=== PATIENT | male | born 1960 | race Two or more races ===

== ENCOUNTER 2022-02-17 06:25 | Inpatient (IN) | payer MEDICARE, OTHER ==
[~2022-02-17] VITALS: Ht 170.2 cm; Wt 56.7 kg
[2022-02-17] MEDS ORDERED: IV NS 0.9% 1,000 ML BAG IV ONE ×2 (06:30→07:30)
[2022-02-17] MEDS ORDERED: ONDANSETRON HCL/PF 4 MG/2 ML VIAL IVP ONE (06:30)
[2022-02-17] MEDS ORDERED: ONDANSETRON HCL/PF 4 MG/2 ML VIAL ONE (06:44)
[2022-02-17] MEDS ORDERED: FAMOTIDINE (20 MG) 20 MG TABLET ONE (06:44)
--- NOTE | 2022-02-17 06:51 | NUR ---
BIBRA 41 FROM [facility] FOR C/O EPIGASTRIC/ABD PAIN, N/V, AND DIARRHEA SINCE MONDAY, NON-BLOODY. PT AWAKE AND ALERT ANSWER QUESTIONS APPROPRIATELY.PT PLACED ON MONITOR AND NOTED TACHYCARDIC RECTAL TEMP 96.7. MD WAS AT BEDSIDE FOR EVAL.
--- NOTE | 2022-02-17 06:53 | NUR ---
20G IV ESTABLISHED AT [facility]. BLOOD DRAWN AND SENT TO LAB
--- NOTE | 2022-02-17 06:57 | NUR ---
PT UNABLE TO PROVIDE URINE AT THIS TIME. URINAL AT BEDSIDE
[2022-02-17 07:00] LABS: BASOPHILS % (AUTO) 0.2 % (0.0-2.0); EOSINOPHILS % (AUTO) 0.1 % (0.0-6.0); HEMATOCRIT 46 % (39-51); HEMOGLOBIN 15.2 g/dL (13.5-17.5); LYMPHOCYTES # (AUTO) 1.2 K/uL (0.8-4.8); LYMPHOCYTES % (AUTO) 8.4 % (20.0-44.0); MEAN CORPUSCULAR HGB CONC 33 g/dl (31.0-36.0); MEAN CORPUSCULAR VOLUME 91 fL (80-96); MONOCYTES # (AUTO) 0.8 K/uL (0.1-1.30); MONOCYTES % (AUTO) 6.1 % (2.0-12.0); NEUTROPHILS # (AUTO) 11.9 K/uL (1.8-8.9); NEUTROPHILS % (AUTO) 85.2 % (43.0-81.0); PLATELET COUNT (AUTO) 535 K/uL (150-450); RED BLOOD CELL COUNT(AUTO) 5.11 MIL/uL (4.5-6.0)
[2022-02-17] MEDS ORDERED: FAMOTIDINE (20 MG) 20 MG TABLET PO ONE (07:00)
--- NOTE | 2022-02-17 07:06 | NUR ---
BROUGHT PATIENT TO CT DEPARTMENT
[2022-02-17 07:14] LABS: CALCIUM, SERUM 8.9 mg/dL (8.5-10.1); CARBON DIOXIDE 25 mmol/L (21-32); CHLORIDE 92 mmol/L (98-107); CREATININE 1.8 mg/dL (0.6-1.3); GLUCOSE 233 mg/dL (74-106); SODIUM SERUM 134 mmol/L (136-145); UREA NITROGEN, BLOOD 30 mg/dL (7-18)
[2022-02-17] MEDS ORDERED: POTASSIUM CL. PREMIX PERIPHER. 50 ML IV SCH (07:30)
[2022-02-17 07:31] LABS: ALANINE AMINOTRANSFERASE 22 U/L (12-78); ALKALINE PHOSPHATASE 67 U/L (46-116); ASPARTATE AMINOTRANSFERASE 11 U/L (15-37); BILIRUBIN,DIRECT 0.2 mg/dL (0.0-0.2); BILIRUBIN,TOTAL 0.8 mg/dL (0.2-1.0); TOTAL PROTEIN, SERUM 6.2 g/dL (6.4-8.2)
[2022-02-17 07:59] LABS: MAGNESIUM 2.3 mg/dL (1.8-2.4)
[2022-02-17 08:00] LABS: ALCOHOL, BLOOD < 3 mg/dL (0-0)
[2022-02-17] MEDS ORDERED: PIPERACILLIN /TAZOBACTAM 3.375 G in IV D5W 50 ML IV ONE (08:00)
[2022-02-17] MEDS ORDERED: PIPERACILLIN /TAZOBACTAM 3.375 G VIAL IV ONE (08:16)
[2022-02-17 08:20] LABS: BILIRUBIN,URINE NEGATIVE (NEGATIVE); COLOR,URINE YELLOW (YELLOW); LEUKOCYTE ESTERASE ,URINE NEGATIVE (NEGATIVE); NITRITE, URINE NEGATIVE (NEGATIVE); PH,URINE 5.5 (5.0-8.0); PROTEIN,URINE TRACE mg/dl (NEGATIVE); UGLUCOSE NEGATIVE (NEGATIVE)
--- NOTE | 2022-02-17 08:47 | NUR ---
RT AT BEDSIDE FOR ABG
[2022-02-17 08:50] LABS: BACTERIA,URINE None seen /HPF (None Seen); HYALINE CASTS, URINE Moderate /LPF (None Seen); RBC,URINE 0-2 /HPF (0-2); SQUAMOUS EPITHELIAL CELL,UR Few /HPF (None Seen); WBC,URINE 0-2 /HPF (0-3)
[2022-02-17] MEDS ORDERED: POTASSIUM CL. PREMIX PERIPHER. 100 ML ONE (09:15)
[2022-02-17] MEDS ORDERED: MAG HYDROX/AL HYDROX/SIMETH 30 ML UDC PO PRN (09:30)
[2022-02-17] MEDS ORDERED: MORPHINE SULFATE INJ 2 MG/ML DISP.SYRIN IV PRN (09:30)
[2022-02-17] MEDS ORDERED: MAGNESIUM HYDROXIDE 30 ML UDC PO PRN (09:30)
[2022-02-17] MEDS ORDERED: IV D5/0.45 NACL 1,000 ML IV PRN (09:30)
[2022-02-17] MEDS ORDERED: Z GUARD REMEDY 4 OZ OINT TP PRN (09:30)
[2022-02-17] MEDS ORDERED: HYDROCODONE/APAP 5/325MG TABLET PO PRN (09:30)
[2022-02-17] MEDS ORDERED: ACETAMINOPHEN 325 MG TABLET PO PRN (09:30)
[2022-02-17] MEDS ORDERED: ZOLPIDEM TARTRATE 5 MG TABLET PO PRN (09:30)
[2022-02-17] MEDS ORDERED: ONDANSETRON HCL/PF 4 MG/2 ML VIAL IVP PRN (09:30)
--- NOTE | 2022-02-17 10:28 | NUR ---
GOT BED 308.
--- NOTE | 2022-02-17 11:35 | NUR ---
REPORT GIVEN TO KAROLYN GARCIA FOR TERI
[2022-02-17 11:42] LABS: LIPASE 174 U/L (73-393)
--- NOTE | 2022-02-17 12:07 | NUR ---
TRANSFERRED TO BED 308 IN STABLE CONDITION
[2022-02-17 12:10] VITALS: BP 124/66
--- NOTE | 2022-02-17 12:10 | NUR ---
RN Receiving Report. Patient arrived to unit safely, all safety precautions taken. Patient AOx4 able to communicate concerns, patient able to provide his medical history. Patients vital signs stable, no signs of distress, patient on Room Air with no signs or symptoms of respiratory distress. Call light and table within reach, bed at lowest position. Oriented patient to the funit and discussed plan of care, patient agrees. Will continue to monitor and provide care as needed.
[2022-02-17 16:00] VITALS: BP 152/93
[2022-02-17] MEDS: PIPERACILLIN /TAZOBACTAM 3.375 G in IV D5W 100 ML IV SCH ×2 (16:02→23:25)
--- NOTE | 2022-02-17 18:30 | NUR ---
RN Opening Note Patient AOx4, able to express his own concerns. State he is able to go back to the senior living when he is ready for discharge. Administered medications as prescribed, provided care as needed. All safety precautions taken, call light and table within reach. Will endorse to night nurse for continuity of care.
[2022-02-17 18:54] LABS: ABG BASE EXCESS -1.1 mmol/L; ABG PCO2 39.2 mmHg (35.0-45.0); ABG PH 7.397 (7.350-7.450); ABG PO2 79.6 mmHg (75.0-100.0); COHb 0.3 % (0.5-1.5); MetHb 0.3 % (0.0-1.5); SITE, ABG Right Radial; VENT MODE, BG RA 21%
[2022-02-17] MEDS ORDERED: INFLUENZA VACCINE 2022-23 0.5 ML DISP.SYRIN IM ONE (19:00)
--- NOTE | 2022-02-17 19:20 | NUR ---
PULP GRINDER FEEDER OPENING NOTE RECEIVED PATIENT IN BED; AWAKE, ALERT AND ORIENTED X 3. BREATHING EVEN AND NONLABORED. ON ROOM AIR; TOLERATING WELL. NOT IN ANY FORM OF RESPIRATORY DISTRESS. DENIES ANY PAIN OR DISCOMFORT AT THIS TIME. ON TELEMETRY MONITORING: SINUS RHYTHM HR-83 BPM. WITH IV ACCESS ON LEFT ANTECUBITAL 20g: PATENT AND INTACT INFUSING WITH D5 1/2 NS 1L RUNNING @ 125 ML/HR; FLUSHES WELL. ABLE TO MAKE NEEDS KNOWN. SAFETY MEASURES IMPLEMENTED: CALL LIGHT AND TABLE WITHIN REACH, SIDE RAILS UP X 2, BED IN LOWEST LOCKED POSITION. WILL CONTINUE PLAN OF CARE.
[2022-02-17 20:00] VITALS: BP 160/73
[2022-02-18] VITALS (7 sets, daily range): BP systolic 122–166; BP diastolic 74–88
[2022-02-18 06:47] LABS: BASOPHILS % (AUTO) 0.3 % (0.0-2.0); EOSINOPHILS % (AUTO) 0.2 % (0.0-6.0); HEMATOCRIT 35 % (39-51); LYMPHOCYTES # (AUTO) 1.6 K/uL (0.8-4.8); MEAN CORPUSCULAR HGB CONC 34 g/dl (31.0-36.0); MEAN CORPUSCULAR VOLUME 90 fL (80-96); MONOCYTES # (AUTO) 0.6 K/uL (0.1-1.30); MONOCYTES % (AUTO) 6.9 % (2.0-12.0); NEUTROPHILS # (AUTO) 6.9 K/uL (1.8-8.9); NEUTROPHILS % (AUTO) 75.6 % (43.0-81.0); PLATELET COUNT (AUTO) 410 K/uL (150-450); RED BLOOD CELL COUNT(AUTO) 3.92 MIL/uL (4.5-6.0); WHITE BLOOD COUNT (AUTO) 9.1 K/uL (4.3-11.0)
--- NOTE | 2022-02-18 06:55 | NUR ---
CLEANING ASSOCIATE CLOSING NOTE PATIENT IN BED; AWAKE, A/O X 3. STABLE ON ROOM AIR. BREATHING EQUAL AND UNLABORED. IN NO APPARENT DISTRESS. NO C/O ANY PAIN OR DISCOMFORT NOTED AT THIS TIME. ON TELE MONITORING: SINUS RHYTHM HR-74 BPM WITH PVCS AND TRIGEMINY. IV ACCESS ON LEFT AC 20g: PATENT AND INTACT INFUSING WITH D5 1/2 NS RUNNING @ 125 ML/HR; FLUSHES WELL. ALL NEEDS ATTENDED. ALL DUE MEDS GIVEN ORDERED. SAFETY MEASURES MAINTAINED: CALL BUTTON AND TABLE WITHIN EASY REACH, SIDE RAILS UP X 2, BED IN LOWEST LOCKED POSITION. ENDORSED TO MORNING SHIFT FOR TERI.
[2022-02-18 07:20] LABS: CALCIUM, SERUM 8.3 mg/dL (8.5-10.1); CREATININE 0.9 mg/dL (0.6-1.3); MAGNESIUM 2.3 mg/dL (1.8-2.4); POTASSIUM 3.7 mmol/L (3.5-5.1)
--- NOTE | 2022-02-18 07:25 | NUR ---
RN OPENING NOTE RECEIVED PATIENT IN BED, AWAKE, A/O X4, VERBALLY RESPONSIVE. NO SIGNS OF ACUTE DISTRESS NOTED. STABLE ON ROOM AIR. NO SOB NOTED. BREATHING EVEN AND UNLABORED. ON RAILROAD MECHANIC, SHOWING SINUS RHYTHM WITH PVC, HR @ 70. DENIES ANY PAIN AT THIS TIME. NOTED WITH IV ACCESS ON LEFT AC #20G, INTACT AND PATENT WITH D5 1/2NS @125 ML/HR. SAFETY MEASURE IN PLACE. BED IN LOWEST AND LOCKED POSITION. SIDE RAILS UP X2, CALL LIGHT PLACED WITHIN EASY REACH. WILL CONTINUE TO MONITOR PATIENT.
[2022-02-18] MEDS: PANTOPRAZOLE 40 MG VIAL IV SCH (08:17)
[2022-02-18] MEDS: PIPERACILLIN /TAZOBACTAM 3.375 G in IV D5W 100 ML IV SCH ×3 (08:17→23:19)
[2022-02-18] MEDS: ATORVASTATIN 10 MG TABLET PO SCH (12:58)
[2022-02-18] MEDS: CARVEDILOL 3.125 MG TABLET PO SCH ×2 (12:58→21:05)
[2022-02-18] MEDS: ASPIRIN 81 MG TAB.CHEW PO SCH (12:58)
[2022-02-18 13:13] LABS: CHOLESTEROL 148 mg/dL (<200); HDL CHOLESTEROL 58 mg/dL (40-60); LDL 70 mg/dL (0-99); TRIGLYCERIDES 114 mg/dL (30-150)
--- NOTE | 2022-02-18 18:35 | NUR ---
RN CLOSING NOTES PATIENT RESTING IN BED, EASILY AROUSED. NO SIGNS OF ACUTE DISTRESS NOTED. REMIANS STABLE ON ROOM AIR. NO SOB NOTED. BREATHING EVEN AND UNLABORED. ON AIRBORNE AND AIR DELIVERY SPECIALIST, CURRENTLY SHOWING SINUS RHYTHM WITH PVC, HR @ 870 NO C/O PAIN AT THIS TIME. NOTED WITH IV ACCESS ON LEFT AC #20G, INTACT AND PATENT WITH D5 1/2NS @125 ML/HR. SAFETY MEASURE IN PLACE. BED IN LOWEST AND LOCKED POSITION. SIDE RAILS UP X2, CALL LIGHT PLACED WITHIN EASY REACH. WILL ENDORSE TO NEXT SHIFT FOR TERI.
--- NOTE | 2022-02-18 19:20 | NUR ---
RN OPENING NOTE RECEIVED PATIENT IN BED; AWAKE, ALERT AND ORIENTED X 4. BREATHING EVENLY AND NONLABORED. ON ROOM AIR; TOLERATING WELL. NOT IN ANY FORM OF RESPIRATORY DISTRESS. NO C/O ANY PAIN OR DISCOMFORT AT THIS TIME. ON TELEMETRY MONITORING: SINUS RHYTHM WITH PVC HR-88 BPM. WITH IV ACCESS ON LEFT ANTECUBITAL 20g: PATENT AND INTACT INFUSING WITH D5 1/2 NS 1L RUNNING @ 125 ML/HR; FLUSHES WELL. ABLE TO MAKE NEEDS KNOWN. SAFETY MEASURES IMPLEMENTED: CALL LIGHT AND TABLE WITHIN REACH, SIDE RAILS UP X 2, BED IN LOWEST LOCKED POSITION. WILL CONTINUE PLAN OF CARE
[2022-02-19] VITALS: BP 111/56
[2022-02-19 04:00] VITALS: BP 137/79
[2022-02-19 06:17] LABS: BASOPHILS % (AUTO) 0.2 % (0.0-2.0); EOSINOPHILS % (AUTO) 1.2 % (0.0-6.0); HEMATOCRIT 29 % (39-51); HEMOGLOBIN 9.9 g/dL (13.5-17.5); LYMPHOCYTES # (AUTO) 1.5 K/uL (0.8-4.8); LYMPHOCYTES % (AUTO) 22.6 % (20.0-44.0); MEAN CORPUSCULAR HGB CONC 34 g/dl (31.0-36.0); MEAN CORPUSCULAR VOLUME 88 fL (80-96); MONOCYTES # (AUTO) 0.5 K/uL (0.1-1.30); MONOCYTES % (AUTO) 7.1 % (2.0-12.0); NEUTROPHILS # (AUTO) 4.6 K/uL (1.8-8.9); NEUTROPHILS % (AUTO) 68.9 % (43.0-81.0); PLATELET COUNT (AUTO) 379 K/uL (150-450); RED BLOOD CELL COUNT(AUTO) 3.27 MIL/uL (4.5-6.0); WHITE BLOOD COUNT (AUTO) 6.7 K/uL (4.3-11.0)
--- NOTE | 2022-02-19 06:40 | NUR ---
RN CLOSING NOTE PATIENT IN BED; AWAKE, A/O X 4. STABLE ON ROOM AIR. BREATHING EVENLY AND UNLABORED. IN NO ACUTE DISTRESS. DENIES ANY PAIN OR DISCOMFORT AT THIS TIME. ON TELE MONITORING: SINUS RHYTHM WITH PVC HR-88 BPM. WITH IV ACCESS ON LEFT AC 20g: INTACT AND PATENT INFUSING WITH D5 1/2 NS 1L RUNNING @ 125 ML/HR; FLUSHING WELL. ALL NEEDS ATTENDED. SAFETY MEASURES MAINTAINED: CALL LIGHT AND TABLE WITHIN REACH, SIDE RAILS UP X 2, BED IN LOWEST LOCKED POSITION. ENDORSED TO MORNING SHIFT FOR TERI.
[2022-02-19 06:45] LABS: ALBUMIN 2.4 g/dL (3.4-5.0); BILIRUBIN,TOTAL 0.5 mg/dL (0.2-1.0); CREATININE 0.8 mg/dL (0.6-1.3); PHOSPHORUS 2.8 mg/dL (2.5-4.9); POTASSIUM 3.7 mmol/L (3.5-5.1); TOTAL PROTEIN, SERUM 4.7 g/dL (6.4-8.2)
--- NOTE | 2022-02-19 07:20 | NUR ---
SAND MIXER OPERATOR OPENING NOTE PATIENT IN BED ALERT AND ORIENTED X 4. PATIENT ON ROOM AIR WITH EQUAL AND UNLABORED BREATHING. WITH NO RESPIRATORY DISTRESS NOTED. PATIENT DENIES ANY PAIN OR DISCOMFORT AT THIS TIME. ON TELE MONITORING READING SINUS RHYTHM WITH PVC AND OCCASIONAL TRIGEMINY WITH HR OF 81 BPM. WITH IV ACCESS ON LEFT AC 20G WITH D5 1/2 NS RUNNING AT 125ML/HR INFUSING WELL. COMFORT MEASURES PROVIDED. IN STABLE CONDITION. CALL LIGHT AND TABLE WITHIN REACH, SIDE RAILS UP X 2, BED IN LOWEST LOCKED POSITION.
[2022-02-19 08:00] VITALS: BP 140/70
[2022-02-19] MEDS: PIPERACILLIN /TAZOBACTAM 3.375 G in IV D5W 100 ML IV SCH ×2 (09:09→15:58)
[2022-02-19] MEDS: ASPIRIN 81 MG TAB.CHEW PO SCH (09:09)
[2022-02-19] MEDS: ATORVASTATIN 10 MG TABLET PO SCH (09:09)
[2022-02-19] MEDS: PANTOPRAZOLE 40 MG VIAL IV SCH (09:09)
[2022-02-19] MEDS: CARVEDILOL 3.125 MG TABLET PO SCH ×2 (09:10→20:21)
--- NOTE | 2022-02-19 09:18 | NUR ---
PLASTIC DIE MAKER APPRENTICE NOTE PATIENT GIVEN FULL LIQUID DIET, TOLERATED WELL.
--- NOTE | 2022-02-19 12:15 | NUR ---
SAFETY PERSON NOTE PATIENT REQUESTED TO ADVANCE DIET. WITH MD ORDER TO ADVANCE DIET TOLERATED. PATIENT CHANGED TO SOFT DIET. TOLERATED WELL. IN STABLE CONDITION.
--- NOTE | 2022-02-19 13:40 | NUR ---
[employer]AD[employer]CHOOL DEAN NOTE PATIENT BROUGHT DOWN FOR CTA WITH 3D IMAGING. IN STABLE CONDITION.
[2022-02-19] MEDS ORDERED: IOHEXOL-350 100 ML VIAL IV ONE (13:52)
[2022-02-19] MEDS ORDERED: NITROGLYCERIN 0.4 MG/TAB BOTTLE ONE (13:52)
[2022-02-19] MEDS ORDERED: METOPROLOL TARTRATE INJ 5 MG/5 ML AMPUL ONE (13:53)
[2022-02-19] MEDS ORDERED: IV NS 0.9% 250 ML IV ONE (13:53)
[2022-02-19] MEDS ORDERED: CT SWABBABLE VALVE TRANS SET 1 EA INFUS.SET MC ONE (13:53)
[2022-02-19] MEDS ORDERED: IV NS 0.9% 500 ML IV ONE (14:13)
--- NOTE | 2022-02-19 14:30 | NUR ---
ACTIONSCRIPT DEVELOPER NOTE BACK FROM PROCEDURE, IN STABLE CONDITION. PROVIDED WITH CALM AND QUIET ENVIRONMENT.
--- NOTE | 2022-02-19 14:53 | NUR ---
METAL ROLLING MILL OPERATOR NOTE SEEN BY HOSPITALIST AIMEE CAMARA.
[2022-02-19 16:00] VITALS: BP 130/51
--- NOTE | 2022-02-19 16:07 | NUR ---
CLOCKSMITH NOTE ENDORSED TO JOSE ORELLANA FOR CONTINUITY OF CARE.
--- NOTE | 2022-02-19 18:59 | NUR ---
FUR CLEANER CLOSING NOTE PT IN BED ALERT AND ORIENTED X 4. PATIENT ON ROOM AIR WITH NO SOB OR DISTRESS NOTED , PATIENT DENIES ANY PAIN OR DISCOMFORT AT THIS TIME. ON TELE MONITORING READING SINUS RHYTHM WITH PVC AND OCCASIONAL TRIGEMINY WITH HR OF 80 BPM. WITH IV ACCESS ON LEFT AC 20G WITH D5 1/2 NS RUNNING AT 125ML/HR INFUSING WELL. ALL DUE MEDS GIVEN ORDERED , WITH ORDER FOR DISCHARGE BUT AWAITING FOR THE RESULT OF CTCA , COMFORT MEASURES PROVIDED. IN STABLE CONDITION. CALL LIGHT AND TABLE WITHIN REACH, SIDE RAILS UP X 2, BED IN LOWEST LOCKED POSITION. ENDORSED TO NEXT SHIFT
--- NOTE | 2022-02-19 19:33 | NUR ---
MEMBER OF THE LEGISLATIVE ASSEMBLY OPENING NOTES; RECEIVED PT IN BED ALERT AND ORIENTED X 4. PATIENT ON ROOM AIR WITH NO SOB OR DISTRESS NOTED , PATIENT DENIES ANY PAIN OR DISCOMFORT AT THIS TIME.WITH IV ACCESS ON LEFT AC 20G WITH D5 1/2 NS RUNNING AT 125ML/HR INFUSING WELL,SAFETY MEASURE INPLACE,CALL LIGHT AND TABLE WITHIN REACH, SIDE RAILS UP X 2, BED IN LOWEST LOCKED POSITION.WILL CONTINUE TO MONITOR.
[2022-02-19 20:00] VITALS: BP 115/53
[2022-02-20] VITALS: BP 102/58
[2022-02-20] MEDS: PIPERACILLIN /TAZOBACTAM 3.375 G in IV D5W 100 ML IV SCH ×2 (00:10→07:47)
[2022-02-20 04:00] VITALS: BP 113/71
--- NOTE | 2022-02-20 06:20 | NUR ---
RESPIRATORY THERAPY AIDE CLOSING NOTES; PT IN BED ALERT AND ORIENTED X 4. PATIENT ON ROOM AIR WITH NO SOB OR DISTRESS NOTED , PATIENT DENIES ANY PAIN OR DISCOMFORT DURING SHIFT.DUE MEDS GIVEN ORDER,ALL NEEDS ATTENDED,WITH IV ACCESS ON LEFT AC 20G WITH D5 1/2 NS RUNNING AT 125ML/HR INFUSING WELL,SAFETY MEASURE INPLACE,CALL LIGHT AND TABLE WITHIN REACH, SIDE RAILS UP X 2, BED IN LOWEST LOCKED POSITION.WILL ENDORSED TO NEXT SHIFT.
[2022-02-20 07:01] LABS: CALCIUM, SERUM 8.1 mg/dL (8.5-10.1); CREATININE 0.9 mg/dL (0.6-1.3); MAGNESIUM 2.1 mg/dL (1.8-2.4); PHOSPHORUS 3.3 mg/dL (2.5-4.9); POTASSIUM 3.8 mmol/L (3.5-5.1)
[2022-02-20 07:17] LABS: BASOPHILS % (AUTO) 0.5 % (0.0-2.0); EOSINOPHILS % (AUTO) 2.5 % (0.0-6.0); HEMATOCRIT 29 % (39-51); HEMOGLOBIN 9.9 g/dL (13.5-17.5); LYMPHOCYTES # (AUTO) 1.8 K/uL (0.8-4.8); LYMPHOCYTES % (AUTO) 25.8 % (20.0-44.0); MEAN CORPUSCULAR HGB CONC 34 g/dl (31.0-36.0); MEAN CORPUSCULAR VOLUME 90 fL (80-96); MONOCYTES # (AUTO) 0.5 K/uL (0.1-1.30); NEUTROPHILS # (AUTO) 4.4 K/uL (1.8-8.9); NEUTROPHILS % (AUTO) 64.2 % (43.0-81.0); PLATELET COUNT (AUTO) 449 K/uL (150-450); RED BLOOD CELL COUNT(AUTO) 3.26 MIL/uL (4.5-6.0); WHITE BLOOD COUNT (AUTO) 6.8 K/uL (4.3-11.0)
--- NOTE | 2022-02-20 07:35 | NUR ---
UNARMED SECURITY GUARD OPENING NOTE RECEIVED PATIENT IN BED; AWAKE, AOX4. ON TOLERATING ROOM AIR WELL. BREATHING EVENLY AND NONLABORED, NO NOTED SOB AND ANY FORM OF ACUTE DISTRESS. DENIES ANY PAIN OR DISCOMFORT AT THIS TIME. ON TELEMETRY MONITORING: SINUS RHYTHM WITH PVCS AND BIGEMY AT 76 BPM. WITH IV ACCESSES ON LEFT ANTECUBITAL G#20 (SALINE LOCKED) AND LEFT UPPER ARM G#18 INFUSING WITH D5 1/2 NS 1L RUNNING @ 125 ML/HR; BOTH ARE INTACT, PATENT, AND FLUSHING WELL. ABLE TO MAKE NEEDS KNOWN. SAFETY MEASURES IN PLACE: CALL LIGHT AND TABLE WITHIN REACH, SIDE RAILS UP X 2, BED IN LOWEST LOCKED POSITION. WILL CONTINUE PLAN OF CARE
[2022-02-20] MEDS: ATORVASTATIN 10 MG TABLET PO SCH (08:28)
[2022-02-20] MEDS: ASPIRIN 81 MG TAB.CHEW PO SCH (08:28)
[2022-02-20] MEDS: PANTOPRAZOLE 40 MG VIAL IV SCH (08:28)
[2022-02-20 08:43] VITALS: BP 114/65
[2022-02-20] MEDS: CARVEDILOL 3.125 MG TABLET PO SCH (08:43)
[2022-02-20] MEDS ORDERED: PANTOPRAZOLE 40 MG/PACK PACK NG SCH (09:30)
--- NOTE | 2022-02-20 09:38 | NUR ---
RN NOTES - TRANSFERRED TO [place], TELEBOX SURRENDERED TO [place].
--- NOTE | 2022-02-20 10:03 | NUR ---
RN NOTES - DAUGHTER EVE AND SON CLAUS AT BEDSIDE WANTED TO PICK PATIENT UP. WILL PROCESS DISCHARGE PER DAWN CAMARA'S ORDER.
[2022-02-20] MEDS ORDERED: CARV3.122 PO (11:32)
[2022-02-20] MEDS ORDERED: METR500T PO (11:32)
[2022-02-20] MEDS ORDERED: CIPR500T5 PO (11:32)
[2022-02-20] MEDS ORDERED: ASPI-1169 PO (11:32)
[2022-02-20] MEDS ORDERED: ATOR10TA PO (11:32)
--- NOTE | 2022-02-20 13:15 | NUR ---
RN MS DISCHARGE NOTES PT DISCHARGED TO HOME IN STABLE CONDITION. PT IS AOX4, ABLE TO MAKE NEEDS KNOWN, ON ROOM AIR, SATURATING WELL WITH NO SOB NOR ANY APPARENT DISTRESS. VITAL SIGNS TAKEN. STABLE AND RECORDED. PT'S SKIN IS INTACT. PATIENT DENIES PAIN NOR DISCOMFORT THIS TIME. ALL BELONGINGS ACCOUNTED FOR. DISCHARGE INSTRUCTIONS GIVEN TO THE PATIENT WITH KATALINA DEVLIN AT BEDSIDE. REMINDED THE PATIENT REGARDING FOLLOW UP VISIT WITH PCP IN 1 WEEK. IV ACCESSES ON LAC G#20 AND LUFA G#18, REMOVED WITH NO ACTIVE BLEEDING, DRY PRESSURE DRESSING APPLIED AT SITE. PT LEFT THE UNIT AT 1310 ON FOOT WITH KATALINA DEVLIN. AND CHARGE NURSE AWARE OF DISCHARGE.
[2022-02-21] MEDS ORDERED: PANTOPRAZOLE 40 MG TABLET.DR PO SCH (09:00)
== END 2022-02-20 13:30 | disposition home or self-care (01) | DRG 371 ==
LOC: ER 06:28 → TELE 11:35 → MED 02-20 11:19
PROVIDERS: ADMIT Student in an Organized Health Care Education/Training Program; ATTEND Student in an Organized Health Care Education/Training Program
DX: A04.9 Bacterial intestinal infection, unspecified (principal); I21.4 Non-ST elevation (NSTEMI) myocardial infarction; N17.0 Acute kidney failure with tubular necrosis; E44.0 Moderate protein-calorie malnutrition; E87.1 Hypo-osmolality and hyponatremia; E87.20 Acidosis, unspecified; Z20.822 Contact with and (suspected) exposure to COVID-19; E87.6 Hypokalemia; Z90.01 Acquired absence of eye; Z87.828 Personal history of other (healed) physical injury and trauma; E88.09 Other disorders of plasma-protein metabolism, not elsewhere classified; I25.10 Atherosclerotic heart disease of native coronary artery without angina pectoris; Z59.00 Homelessness unspecified
CPT/HCPCS: 36415; 36600; 71045-TC; 75574; 80048-TC; 80053-TC; 80061-TC; 80076-TC; 81001; 82803-TC; 83605-TC; 83690-TC; 83735-TC; 84100-TC; 84484-TC; 85025-TC; 87040-TC; 87081-TC; 93307-TC; C9113; C9803; G0378; G0480; J2405; J2543; J3480; J3490; J7030; J7040; J7050; J7060; Q2036; Q9967

== ENCOUNTER 2022-03-11 09:09 | Emergency (ER) | payer BC, OTHER ==
[~2022-03-11 09:09] MED LIST: ASPI-1169 PO; ATOR10TA PO; CARV3.122 PO; CIPR500T5 PO; METR500T PO
--- NOTE | 2022-03-11 09:20 | NUR ---
REceved pt 62 yrs male came [facility] c/o chest pain for one week respration spont and easy
--- NOTE | 2022-03-11 09:30 | NUR ---
BLOOD DROW and sent to lab
[2022-03-11 10:02] LABS: CALCIUM, SERUM 8.6 mg/dL (8.5-10.1); CARBON DIOXIDE 27 mmol/L (21-32); CHLORIDE 103 mmol/L (98-107); CREATININE 0.8 mg/dL (0.6-1.3); GLUCOSE 101 mg/dL (74-106); POTASSIUM 4.4 mmol/L (3.5-5.1); SODIUM SERUM 134 mmol/L (136-145); UREA NITROGEN, BLOOD 22 mg/dL (7-18)
[2022-03-11 10:08] LABS: ALANINE AMINOTRANSFERASE 29 U/L (12-78); ALBUMIN 2.7 g/dL (3.4-5.0); ALKALINE PHOSPHATASE 74 U/L (46-116); ASPARTATE AMINOTRANSFERASE 17 U/L (15-37); BILIRUBIN,DIRECT 0.1 mg/dL (0.0-0.2); BILIRUBIN,TOTAL 0.1 mg/dL (0.2-1.0); TOTAL PROTEIN, SERUM 6.2 g/dL (6.4-8.2)
[2022-03-11 10:16] LABS: BASOPHILS % (AUTO) 0.5 % (0.0-2.0); EOSINOPHILS % (AUTO) 0.4 % (0.0-6.0); HEMATOCRIT 25 % (39-51); HEMOGLOBIN 8.1 g/dL (13.5-17.5); LYMPHOCYTES # (AUTO) 0.9 K/uL (0.8-4.8); LYMPHOCYTES % (AUTO) 11.6 % (20.0-44.0); MEAN CORPUSCULAR HGB CONC 33 g/dl (31.0-36.0); MEAN CORPUSCULAR VOLUME 88 fL (80-96); MONOCYTES # (AUTO) 0.4 K/uL (0.1-1.30); MONOCYTES % (AUTO) 5.5 % (2.0-12.0); NEUTROPHILS # (AUTO) 6.3 K/uL (1.8-8.9); PLATELET COUNT (AUTO) 668 K/uL (150-450); RED BLOOD CELL COUNT(AUTO) 2.82 MIL/uL (4.5-6.0); WHITE BLOOD COUNT (AUTO) 7.7 K/uL (4.3-11.0)
--- NOTE | 2022-03-11 10:30 | NUR ---
AWAITING DIPOSITION OF PATIENT BY .
--- NOTE | 2022-03-11 11:53 | NUR ---
DINESES CHEST PAIN OR SOB RESING AND COMFORTABLE
[2022-03-11] MEDS ORDERED: OMEP20CA15 PO (12:15)
[2022-03-11] MEDS ORDERED: PANTOPRAZOLE 40 MG TABLET.DR PO ONE (12:24)
[2022-03-11] MEDS: PANTOPRAZOLE 40 MG TABLET.DR PO ONE (12:25)
--- NOTE | 2022-03-11 12:25 | NUR ---
IV removed. Catheter intact and site benign. Pressure and 4x4 applied to site. No bleeding noted.
--- NOTE | 2022-03-11 12:35 | NUR ---
Patient discharged to home in stable condition. Written and verbal after care instructions given. Patient verbalizes understanding of instruction.
[2022-03-11 12:55] VITALS: BP 142/75
== END 2022-03-11 12:59 | disposition home or self-care (01) ==
LOC: ER 09:11
DX: R10.13 Epigastric pain (principal); D64.9 Anemia, unspecified; Z59.01 Sheltered homelessness; Z79.899 Other long term (current) drug therapy
CPT/HCPCS: 36415; 71045-TC; 80048-TC; 80076-TC; 83605-TC; 84484-TC; 85025-TC